=== PATIENT | female | born 1965 | race Caucasian/White ===

== ENCOUNTER 2016-09-08 10:41 | Emergency (ER) | payer SELFPAY ==
[~2016-09-08] VITALS: Ht 152.4 cm; Wt 48.0 kg
[~2016-09-08 10:41] MED LIST: ALBU6.7H INH; AMOX500T PO; IBUP600 PO; LORA-392 PO; SLEEPING PILL PO; TRAZ150T75 PO; ULTR50TA PO
[2016-09-08 10:46] VITALS: BP 133/81; PULSE 80; RESP 18; TEMP 98.3; O2SAT 95
[2016-09-08] MEDS ORDERED: LORA1TAB12 PO (11:18)
[2016-09-08] MEDS ORDERED: ESCI5TAB PO (11:18)
[2016-09-08] MEDS ORDERED: ESCI20TA PO (11:18)
[2016-09-08] MEDS ORDERED: TRAZ50TA12 PO (11:18)
[2016-09-08] MEDS ORDERED: AZIT250T3 PO (13:08)
[2016-09-08] MEDS ORDERED: TRIMSOL RIGHT EYE (13:08)
--- NOTE | 2016-09-08 13:09 | PD ---
HPI Chief Complaint: Cold / Flu Symptoms Time Seen by Provider: 12:30 Travel History International Travel<30 days: No Contact w/Intl Traveler<30days: No Traveled to known affect area: No History of Present Illness HPI 51-year-old female presents emergency department for evaluation of cough and a right pinkeye. Patient reports she's had a productive cough the last 12 days. She reports she woke up this morning with a right pinkeye and crusting at eyelashes. She denies fever, chills, sweats, chest pain or shortness of breath. She reports approximately 12 days ago she developed upper respiratory like symptoms which included sore throat nasal congestion and cough. She reports the cough has lingered and become productive with yellowish sputum. She denies injury to the right eye. She does not wear contact lenses. She denies pain in the eye. Or visual changes. She has a past medical history of asthma. She reports her symptoms are unrelieved with [id number] medicines. [facility] Past Medical History Narrative Medical Significant for asthma. Asthma: Yes Anxiety: Yes Diminished Hearing: No Immunizations Current: No ?: Not Menopausal: Yes Past Surgical History Hysterectomy: Yes Tonsillectomy: Yes Social History Alcohol Use: Yes (2/WEEK) Tobacco Use: Yes (1PPD) Substance Use: No Allergies-Medications (Allergen,Severity, Reaction): Coded Allergies: Codeine (Verified Allergy, Severe, RASH AND SOB, 09/08/16) Reported Meds & Prescriptions Reported Meds & Active Scripts Active Reported Trazodone (Trazodone HCl) 50 Mg Tab 150 Mg PO TID Escitalopram (Escitalopram Oxalate) 5 Mg Tab 2 Mg PO HS Lorazepam 1 Mg Tab 1 Mg PO BID PRN Escitalopram (Escitalopram Oxalate) 20 Mg Tab 20 Mg PO DAILY Review of Systems Except as stated in HPI: all other systems reviewed are Neg Physical Exam Narrative GENERAL: Alert, well-appearing female SKIN: Focused skin assessment warm/dry. HEAD: Atraumatic. Normocephalic. EYES: Pupils equal and round. No scleral icterus. Right eye injected. Crusting eyelashes. Corneas clear. No fluorescein dye uptake. EOMs intact. ENT: No nasal bleeding or discharge. Mucous membranes pink and moist. NECK: Trachea midline. No JVD. CARDIOVASCULAR: Regular rate and rhythm. No murmur appreciated. RESPIRATORY: No accessory muscle use. Clear to auscultation. Breath sounds equal bilaterally. GASTROINTESTINAL: Abdomen soft, non-tender, nondistended. Hepatic and splenic margins not palpable. MUSCULOSKELETAL: No obvious deformities. No clubbing. No cyanosis. No edema. NEUROLOGICAL: Awake and alert. No obvious cranial nerve deficits. Motor grossly within normal limits. Normal speech. PSYCHIATRIC: Appropriate mood and affect; insight and judgment normal. Data Data Last Documented VS Vital Signs Date Time Temp Pulse Resp B/P Pulse Ox O2 Delivery O2 Flow Rate FiO2 09/08/16 10:46 98.3 80 18 133/81 95 Room Air MDM Medical Decision Making Medical Screen Exam Complete: Yes Emergency Medical Condition: Yes Differential Diagnosis Bronchitis, viral conjunctivitis, bacterial conjunctivitis, pneumonia Narrative Course 51-year-old female presents emergency department for evaluation of productive cough and a right pinkeye. Patient reports approximately 12 days ago she developed upper respiratory like symptoms which included cough, sore throat, nasal congestion. She reports all symptoms resolved except the cough which is now productive. She denies shortness of breath, wheezing, chest pain. On exam her lung sounds are clear. Wood's lamp exam of the right eye shows no corneal abrasion or foreign body. Patient will be treated for bronchitis and conjunctivitis. Diagnosis Primary Impression: Bronchitis Additional Impression: Conjunctivitis Qualified Code: H10.31 - Acute conjunctivitis of right eye, unspecified acute conjunctivitis type Referrals: Primary Care Physician Patient Instructions: Acute Bronchitis (ED), Conjunctivitis (ED), General Instructions Additional Instructions: Take medications as prescribed. Follow-up with her primary doctor. Return to the emergency department if he developed new or worsening symptoms. Scripts Polymyxin B-Trimethoprim Opth Drops 10,000-0.1 Unit/Ml-% Soln1 Drop RIGHT EYE Q6HR #1 BOTTLE Ref 0 Prov:Carmen Villarreal 09/08/16 Azithromycin 250 Mg Sut699 Mg PO DIRECTED #6 TAB Ref 0 Take 2 tabs (500 mg) on day 1 then 1 tab daily x 4 days. Prov:Carmen Villarreal 09/08/16 Disposition: 01 DISCHARGE HOME Condition: Stable Carmen Villarreal Sep 08, 2016 13:09
[2016-09-21] MEDS ORDERED: TRIMSOL EACH EYE (14:01)
== END 2016-09-08 13:16 | disposition home or self-care (01) ==
LOC: PHEFT 10:41
DX: J40 Bronchitis, not specified as acute or chronic (principal); H10.31 Unspecified acute conjunctivitis, right eye; F17.200 Nicotine dependence, unspecified, uncomplicated
CPT/HCPCS: 99284

== ENCOUNTER 2016-09-13 14:20 | Emergency (ER) | payer SELFPAY ==
[~2016-09-13] VITALS: Ht 152.4 cm; Wt 48.0 kg
[~2016-09-13 14:20] MED LIST changes: -ALBU6.7H INH; -AMOX500T PO; +AZIT250T3 PO; +ESCI20TA PO; +ESCI5TAB PO; -IBUP600 PO; -LORA-392 PO; +LORA1TAB12 PO; -SLEEPING PILL PO; -TRAZ150T75 PO; +TRAZ50TA12 PO; +TRIMSOL RIGHT EYE; -ULTR50TA PO
[2016-09-13 14:27] VITALS: BP 134/86; PULSE 96; RESP 18; TEMP 97.6; O2SAT 95
--- NOTE | 2016-09-13 15:41 | PD ---
HPI Chief Complaint: Eye Problems/Injury Time Seen by Provider: 15:25 Travel History International Travel<30 days: No Contact w/Intl Traveler<30days: No Traveled to known affect area: No History of Present Illness HPI 51-year-old female presents to the emergency department for evaluation of bilateral eye redness, cough, nasal congestion, right ear pain. Patient was seen in the emergency department September 08, 2016 for the same complaint. At that time she was diagnosed with bronchitis and conjunctivitis. She was prescribed a Z-Donte and polymyxin eyedrops. Patient reports since that time her eyes fail to improve. She denies visual changes. She reports the cough has improved but she continues to have nasal congestion and ear pain. She denies fever or chills , shortness of breath or chest pain. PFSH Past Medical History Asthma: Yes Anxiety: Yes Diminished Hearing: No Immunizations Current: No ?: Not Menopausal: Yes Past Surgical History Hysterectomy: Yes Tonsillectomy: Yes Social History Alcohol Use: Yes (2/WEEK) Tobacco Use: Yes (1PPD) Substance Use: No Allergies-Medications (Allergen,Severity, Reaction): Coded Allergies: Codeine (Verified Allergy, Severe, RASH AND SOB, 09/13/16) Reported Meds & Prescriptions Reported Meds & Active Scripts Active Erythromycin Opth Oint 5 Mg/Gm Oint 1 Applic EACH EYE BID Polymyxin B-Trimethoprim Opth Drops 10,000-0.1 Unit/Ml-% Soln 1 Drop RIGHT EYE Q6HR Reported Trazodone (Trazodone HCl) 50 Mg Tab 150 Mg PO TID Escitalopram (Escitalopram Oxalate) 5 Mg Tab 2 Mg PO HS Lorazepam 1 Mg Tab 1 Mg PO BID PRN Escitalopram (Escitalopram Oxalate) 20 Mg Tab 20 Mg PO DAILY Review of Systems Except as stated in HPI: all other systems reviewed are Neg Physical Exam Narrative GENERAL: Alert, well-appearing female SKIN: Focused skin assessment warm/dry. HEAD: Atraumatic. Normocephalic. EYES: Pupils equal and round. No scleral icterus. Bilateral injection with clear drainage. ENT: No nasal bleeding or discharge. Mucous membranes pink and moist. NECK: Trachea midline. No JVD. CARDIOVASCULAR: Regular rate and rhythm. No murmur appreciated. RESPIRATORY: No accessory muscle use. Clear to auscultation. Breath sounds equal bilaterally. No wheezing or rhonchi. GASTROINTESTINAL: Abdomen soft, non-tender, nondistended. Hepatic and splenic margins not palpable. MUSCULOSKELETAL: No obvious deformities. No clubbing. No cyanosis. No edema. NEUROLOGICAL: Awake and alert. No obvious cranial nerve deficits. Motor grossly within normal limits. Normal speech. PSYCHIATRIC: Appropriate mood and affect; insight and judgment normal. Data Data Last Documented VS Vital Signs Date Time Temp Pulse Resp B/P Pulse Ox O2 Delivery O2 Flow Rate FiO2 09/13/16 14:27 97.6 96 18 134/86 95 MDM Medical Decision Making Medical Screen Exam Complete: Yes Emergency Medical Condition: Yes Differential Diagnosis Viral conjunctivitis, viral illness Narrative Course 51-year-old female presents emergency department for evaluation of bilateral red eyes, nasal congestion, right ear pain. Patient reports symptoms been present for over a week. She was evaluated in the emergency department on September 08, 2016 and diagnosed with bronchitis and conjunctivitis. She reports the cough improved but her eyes have failed to improve. On exam patient has continued conjunctivitis. Without evidence of iritis, corneal abrasion or ulcer. Patient was again educated that this is likely viral conjunctivitis and she needs to follow up with ophthalmology. She was instructed to stop the polymyxin and start erythromycin ointment. Diagnosis Primary Impression: Viral conjunctivitis Additional Impression: Viral illness Referrals: DR. YUMIKO MORGAN Scripts Erythromycin Opth Oint 5 Mg/Gm Oint1 Applic EACH EYE BID #1 TUBE Ref 0 Prov:Carmen Villarreal 09/13/16 Disposition: 01 DISCHARGE HOME Condition: Stable Carmen Villarreal Sep 13, 2016 15:41
[2016-09-13] MEDS ORDERED: ERYTOIN10 EACH EYE (16:08)
[2016-09-21] MEDS ORDERED: TRIMSOL EACH EYE (14:01)
== END 2016-09-13 16:18 | disposition home or self-care (01) ==
LOC: PHED 14:20 → PHEFT 16:18
DX: B30.9 Viral conjunctivitis, unspecified (principal); B34.9 Viral infection, unspecified; H92.01 Otalgia, right ear; R09.81 Nasal congestion; F17.210 Nicotine dependence, cigarettes, uncomplicated
CPT/HCPCS: 99283

== ENCOUNTER 2018-01-05 18:23 | Observation (INO) ==
[2018-01-05] MEDS ORDERED: Sod Chloride 0.9% Inj 1,000 ML IV.SIG ONE (19:30)
--- NOTE | 2018-01-05 19:41 | ED ---
HPI General Chief Complaint: Respiratory Symptoms Stated Complaint: sob Source: patient and family Mode of arrival: ambulatory Limitations: no limitations History of Present Illness HPI narrative: 52-year-old female presents to the emergency department by private transportation for evaluation of syncopal episode just prior to arrival to the emergency department. Patient states she has not felt well all day has been in the process of undergoing test at her physician's office to evaluate for lung disease with primary function test and ankle-brachial index today. Patient states that she also has been evaluated for blood pressure issues and has been prescribed Ativan but states she did not take Ativan today. Patient states that just prior to arrival to the emergency department she was sitting down having a beer and then felt very lightheaded use her inhaler because she thought perhaps she was short of breath felt like she needed some air walked outside and then her significant other found her on the ground in the parking lot. Patient states she did not fall to the ground that she felt very lightheaded so she sat down and then she felt like she is going to pass out so she laid down. According to the significant other he came outside and she was breathing but she did not seem to initially respond to his voice so he sugar and then she came to. No reported seizure activity witnessed. There is no tongue trauma and no bladder or bowel incontinence. Patient states she has numbness and tingling of her arms and her legs. Patient states that she has a history of reactive airways disease anxiety and vertigo. Patient denies having any preceding chest pain or palpitations or diaphoresis. No report of long distance travel protracted bedrest or surgical procedure. No report of lower extremity numbness tingling or weakness. No report of clotting disorder. Patient states she has been under enormous stress and was started on lorazepam for blood pressure as it was felt to be associated with anxiety and stress. Patient's had no fever or chills. Patient does complain of headache and neck pain upper back pain. No report of vomiting but has experienced nausea and reportedly yesterday had a black stool. Patient does take Naprosyn daily. Patient denies any abdominal pain. No dysuria frequency urgency or hematuria. Denies recent injury or fall. No prior history of near syncope or syncope. Patient reports she did feel chilled and tremulous prior to the event. MD complaint: Reports loss of consciousness Onset (ago): minute(s) (40 minutes prior to arrival) -: second(s) and minutes(s) Description of event: Denies tonic-clonic movements, post-event confusion, focal shaking, incontinence, stopped breathing, lost pulse and CPR performed Prodromal symptoms: Reports lightheaded and shortness of breath Witnessed: no (Reportedly it was outside by herself and then her significant other found her briefly after she had stated she was going to walk outside to get some fresh air within minutes.) Context: Reports alcohol use and other (recent stress) Injuries sustained associated with event: Reports none Current symptoms: Reports lightheaded, vertigo, headache, nausea and weakness History: Denies family history of sudden Treatments prior to arrival: Reports none Related Data Home Medications Medication Instructions Recorded Confirmed albuterol sulfate [ProAir HFA] 1 puff INHALATION Q4-6H PRN 01/05/18 01/05/18 albuterol sulfate [Ventolin HFA] 1 puff INHALATION Q4-6H PRN 01/05/18 01/05/18 escitalopram oxalate [Lexapro] 20 mg PO DAILY 01/05/18 01/05/18 gabapentin 300 mg PO TID 01/05/18 01/05/18 lorazepam 1 mg PO BID PRN 01/05/18 01/05/18 meclizine 25 mg PO DAILY PRN 01/05/18 01/05/18 temazepam 01/05/18 trazodone 150 mg PO QPM 01/05/18 01/05/18 Allergies Allergy/AdvReac Type Severity Reaction Status Date / Time codeine Allergy Severe RASH AND Verified 01/05/18 18:30 SOB Review of Systems Constitutional Reports chills and Denies fever(s) Eyes Denies blind spots, Denies blurry vision, Denies decreased night vision and Denies diplopia ENT Reports dizziness, Reports dry mouth, Reports headache(s) and Reports neck pain Cardiovascular Denies chest pain, Denies diaphoresis, Reports syncope, Reports lightheadedness and Reports dyspnea Respiratory Denies cough, Denies pain on inspiration, Reports dyspnea and Denies wheezing Gastrointestinal Denies abdominal pain, Reports nausea and Denies vomiting Comments: yesterday x 1 black stool Genitourinary Denies urinary frequency and Denies dysuria Musculoskeletal Denies back pain, Denies muscle weakness and Reports tingling Integumentary/Breasts Denies pruritus and Denies rash Neurologic Denies abnormal speech, Reports vertigo, Reports dizziness, Reports syncope, Reports headache(s), Denies loss of vision, Reports numbness (all over), Denies convulsions and Reports tingling (all over) Psychiatric Reports anxiety Endocrine Reports fatigue and Denies polydipsia Hematologic/Lymphatic Denies easy bruising Allergic/Immunologic Denies urticaria and Denies wheezing PMFSH Medical History Medical History Depression (Acute) Hx of hysterectomy (Acute) Hypertension (Acute) Insomnia (Acute) Vertigo (Acute) Anxiety (Acute) Surgical History Surgical History History of surgery on arm (Acute) Social History Social History Substance History: Unable to Obtain Second Hand Smoke Exposure: Yes Smoking Status: Current every day smoker Tobacco Type: Cigarettes How Often Do You Have a Drink Containing Alcohol: 2 to 4 times a month Recent Travel in [facility] within the Last 8 Weeks: No Recent Out of Country Travel within the Last 8 Weeks: No Immunization History Tetanus Immunization: >5 Years Hx Influenza Vaccine This Season: No Exam Narrative Exam Narrative: GENERAL: Well-developed well-nourished female appears mildly ill in no acute respiratory distress GCS 15 SKIN: Focused skin assessment warm/dry. HEAD: Atraumatic. Normocephalic. No scalp soft tissue swelling tenderness to palpation abrasion laceration or bony abnormality to palpation EYES: Pupils equal and round and reactive to light. No scleral icterus. No injection or drainage. Extraocular muscles intact. ENT: No nasal bleeding or discharge. Mucous membranes pink and moist. Airway is patent. NECK: Trachea midline. No JVD. No midline tenderness to direct palpation along the cervical spine no bony step-off CARDIOVASCULAR: Regular rate and rhythm. No murmur appreciated. RESPIRATORY: No accessory muscle use. Clear to auscultation. Breath sounds equal bilaterally. GASTROINTESTINAL: Abdomen soft, non-tender, nondistended. Hepatic and splenic margins not palpable. No guarding no rebound. MUSCULOSKELETAL: No obvious deformities. No clubbing. No cyanosis. No edema. Radial and dorsalis pedis pulses 2+ to palpation bilaterally NEUROLOGICAL: Awake and alert. No obvious cranial nerve deficits. Motor grossly within normal limits. No limb ataxia. No pronator drift. Normal speech. PSYCHIATRIC: Appropriate mood and affect; insight and judgment normal. Procedures Hemaprompt Stool Procedural Steps Taken: specimen placed in appropriate test area, developer placed on specimen and control areas and controls appropriately positive and negative Hemaprompt Stool Result: negative Course Initial Documented Vital Signs Temperature 97.6 F 01/05/18 18:31 Pulse Rate 87 01/05/18 18:31 Respiratory Rate 18 01/05/18 18:31 Blood Pressure 97/55 L 01/05/18 18:31 Pulse Oximetry 95 01/05/18 18:31 Last Documented Vital Signs Temperature 97.6 F 01/05/18 18:31 Pulse Rate 78 01/05/18 22:15 Respiratory Rate 18 01/05/18 22:31 Blood Pressure 98/58 L 01/05/18 22:15 Pulse Oximetry 96 01/05/18 21:19 Medical Decision Making MDM Narrative Medical decision making narrative: 52-year-old female presents to the emergency department by private transportation after a syncopal episode with no witnessed seizure activity and no post event confusion no incontinence or tongue trauma. Patient continues to complain of generalized weakness. Patient did drink a small amount of alcohol prior to onset of symptoms. Patient did present with triage hypotension of 97/55 with history of hypertension. Patient placed on threat monitoring analyst IV access obtained specimens collected and sent for resulting bedside glucose 107 Lab values resulted patient identified to have mild hypo-kalemia and positive cocaine on urine drug screen lactic acid was elevated at 2.4 EKG shows no acute injury pattern headache enzymes are found to be in normal range CT brain noncontrast reveals no acute process Patient given additional bolus of normal saline potassium replacement complained of shortness of breath updraft treatment administered x1 with Solu- Medrol Patient complains of headache given Toradol Patient's case discussed with [facility] for OBS admission Medical Screen Exam Complete: Yes Emergency Medical Condition: Yes Differential Diagnosis Differential Diagnosis: Generalized weakness, syncope, arrhythmia, anemia, ACS, MS, PE, CVA, substance ingestion, alcohol ingestion, electrolyte disturbance, dehydration Medical Records Medical records reviewed: Yes I reviewed the patient's medical records. Lab Data Result diagrams: 01/05/18 19:40 01/05/18 19:40 Lab Results 01/05/18 01/05/18 01/05/18 Range/Units 19:40 19:40 19:40 CBC w Diff WBC (4.0-11.0) th/mm3 RBC (4.00-5.30) mil/mm3 Hgb (11.6-15.3) gm/dL Hct (35.0-46.0) % MCV (80.0-100.0) fL MCH (27.0-34.0) pg MCHC (32.0-36.0) % RDW (11.6-17.2) % Plt Count (150-450) th/mm3 MPV (7.0-11.0) fL Neut % (Auto) (16.0-70.0) % Lymph % (Auto) (9.0-44.0) % [place] % (Auto) (0.0-8.0) % Eos % (Auto) (0.0-4.0) % Baso % (Auto) (0.0-2.0) % Neut # (Auto) (1.8-7.7) th/mm3 Lymph # (Auto) (1.0-4.8) th/mm3 [place] # (Auto) (0.0-0.9) th/mm3 Eos # (Auto) (0.0-0.4) th/mm3 Baso # (Auto) (0.0-0.2) th/mm3 WBC Differential Diff Scan Differential Comment Platelet Estimate (Normal) Platelet Morphology (Normal) PT 10.8 (9.8-11.6) sec INR 1.1 Ratio APTT 24.3 (24.3-30.1) sec D-Dimer Quant (PE/DVT) 0.31 (0.00-0.50) mg/L FEU Sodium 138 (136-145) meq/L Potassium 3.2 L (3.5-5.1) meq/L Chloride 105 (98-107) meq/L Carbon Dioxide 19.6 L (21.0-32.0) meq/L Anion Gap 13 (5-15) meq/L BUN 15 (7-18) mg/dL Creatinine 1.00 (0.50-1.00) mg/dL Estimated GFR 58 L (>89) mL/min Random Glucose 104 (74-106) mg/dL Lactic Acid (0.4-2.0) mmol/L Calcium 8.3 L (8.5-10.1) mg/dL Magnesium 2.0 (1.5-2.5) mg/dL Total Bilirubin 0.5 (0.2-1.0) mg/dL AST 18 (15-37) U/L ALT 20 (10-53) U/L Alkaline Phosphatase 60 (45-117) U/L Total Creatine Kinase (26-192) U/L Troponin I (0.02-0.05) ng/mL Total Protein 7.3 (6.4-8.2) g/dL Albumin 4.0 (3.4-5.0) g/dL TSH (0.358-3.740) uIU/mL Urine Color (Yellw/Straw) Urine Clarity (Clear) Urine pH (5.0-8.5) Ur Specific [place] (1.002-1.035) Urine Protein (Neg-Trace) mg/dL Urine Glucose (UA) (Negative) mg/dL Urine Ketones (Negative) mg/dL Urine Occult Blood (Negative) Urine Nitrate (Negative) Urine Bilirubin (Negative) Urine Urobilinogen (Less than 2) mg/dL Ur Leukocyte Esterase (Negative) Urine RBC (0-3) /hpf Urine WBC (0-5) /hpf Ur Squamous Epith Cells (0-5) /hpf Amorphous Sediment (None) /hpf Hyaline Casts (0-3) /lpf Micro UA Comment Ur Microscopic Review Urine Culture Comments Urine Opiates Screen (Neg) Ur Barbiturates Screen (Neg) Ur Amphetamines Screen (Neg) U Benzodiazepines Scrn (Neg) Urine Cocaine Screen (Neg) U Cannabinoids Screen (Neg) Serum Alcohol (0-5) mg/dL Blood Type A Negative Blood Type Recheck Required Antibody Screen Negative 01/05/18 01/05/18 01/05/18 Range/Units 19:40 19:40 19:40 CBC w Diff Slide review pending WBC 6.4 (4.0-11.0) th/mm3 RBC 5.22 (4.00-5.30) mil/mm3 Hgb 15.9 H (11.6-15.3) gm/dL Hct 46.3 H (35.0-46.0) % MCV 88.8 (80.0-100.0) fL MCH 30.4 (27.0-34.0) pg MCHC 34.2 (32.0-36.0) % RDW 13.2 (11.6-17.2) % Plt Count 177 (150-450) th/mm3 MPV 10.7 (7.0-11.0) fL Neut % (Auto) 48.8 (16.0-70.0) % Lymph % (Auto) 37.6 (9.0-44.0) % [place] % (Auto) 8.6 H (0.0-8.0) % Eos % (Auto) 3.1 (0.0-4.0) % Baso % (Auto) 1.9 (0.0-2.0) % Neut # (Auto) 3.2 (1.8-7.7) th/mm3 Lymph # (Auto) 2.4 (1.0-4.8) th/mm3 [place] # (Auto) 0.5 (0.0-0.9) th/mm3 Eos # (Auto) 0.2 (0.0-0.4) th/mm3 Baso # (Auto) 0.1 (0.0-0.2) th/mm3 WBC Differential . Diff Scan Auto diff confirmed Differential Comment . Platelet Estimate Normal (Normal) Platelet Morphology Enlarged H (Normal) PT (9.8-11.6) sec INR Ratio APTT (24.3-30.1) sec D-Dimer Quant (PE/DVT) (0.00-0.50) mg/L FEU Sodium (136-145) meq/L Potassium (3.5-5.1) meq/L Chloride (98-107) meq/L Carbon Dioxide (21.0-32.0) meq/L Anion Gap (5-15) meq/L BUN (7-18) mg/dL Creatinine (0.50-1.00) mg/dL Estimated GFR (>89) mL/min Random Glucose (74-106) mg/dL Lactic Acid (0.4-2.0) mmol/L Calcium (8.5-10.1) mg/dL Magnesium (1.5-2.5) mg/dL Total Bilirubin (0.2-1.0) mg/dL AST (15-37) U/L ALT (10-53) U/L Alkaline Phosphatase (45-117) U/L Total Creatine Kinase (26-192) U/L Troponin I Less than 0.02 L (0.02-0.05) ng/mL Total Protein (6.4-8.2) g/dL Albumin (3.4-5.0) g/dL TSH (0.358-3.740) uIU/mL Urine Color (Yellw/Straw) Urine Clarity (Clear) Urine pH (5.0-8.5) Ur Specific [place] (1.002-1.035) Urine Protein (Neg-Trace) mg/dL Urine Glucose (UA) (Negative) mg/dL Urine Ketones (Negative) mg/dL Urine Occult Blood (Negative) Urine Nitrate (Negative) Urine Bilirubin (Negative) Urine Urobilinogen (Less than 2) mg/dL Ur Leukocyte Esterase (Negative) Urine RBC (0-3) /hpf Urine WBC (0-5) /hpf Ur Squamous Epith Cells (0-5) /hpf Amorphous Sediment (None) /hpf Hyaline Casts (0-3) /lpf Micro UA Comment Ur Microscopic Review Urine Culture Comments Urine Opiates Screen (Neg) Ur Barbiturates Screen (Neg) Ur Amphetamines Screen (Neg) U Benzodiazepines Scrn (Neg) Urine Cocaine Screen (Neg) U Cannabinoids Screen (Neg) Serum Alcohol 17 H (0-5) mg/dL Blood Type Blood Type Recheck Antibody Screen 01/05/18 01/05/18 01/05/18 Range/Units 19:40 19:41 19:41 CBC w Diff WBC (4.0-11.0) th/mm3 RBC (4.00-5.30) mil/mm3 Hgb (11.6-15.3) gm/dL Hct (35.0-46.0) % MCV (80.0-100.0) fL MCH (27.0-34.0) pg MCHC (32.0-36.0) % RDW (11.6-17.2) % Plt Count (150-450) th/mm3 MPV (7.0-11.0) fL Neut % (Auto) (16.0-70.0) % Lymph % (Auto) (9.0-44.0) % [place] % (Auto) (0.0-8.0) % Eos % (Auto) (0.0-4.0) % Baso % (Auto) (0.0-2.0) % Neut # (Auto) (1.8-7.7) th/mm3 Lymph # (Auto) (1.0-4.8) th/mm3 [place] # (Auto) (0.0-0.9) th/mm3 Eos # (Auto) (0.0-0.4) th/mm3 Baso # (Auto) (0.0-0.2) th/mm3 WBC Differential Diff Scan Differential Comment Platelet Estimate (Normal) Platelet Morphology (Normal) PT (9.8-11.6) sec INR Ratio APTT (24.3-30.1) sec D-Dimer Quant (PE/DVT) (0.00-0.50) mg/L FEU Sodium (136-145) meq/L Potassium (3.5-5.1) meq/L Chloride (98-107) meq/L Carbon Dioxide (21.0-32.0) meq/L Anion Gap (5-15) meq/L BUN (7-18) mg/dL Creatinine (0.50-1.00) mg/dL Estimated GFR (>89) mL/min Random Glucose (74-106) mg/dL Lactic Acid 2.4 H (0.4-2.0) mmol/L Calcium (8.5-10.1) mg/dL Magnesium (1.5-2.5) mg/dL Total Bilirubin (0.2-1.0) mg/dL AST (15-37) U/L ALT (10-53) U/L Alkaline Phosphatase (45-117) U/L Total Creatine Kinase 64 (26-192) U/L Troponin I (0.02-0.05) ng/mL Total Protein (6.4-8.2) g/dL Albumin (3.4-5.0) g/dL TSH 0.995 (0.358-3.740) uIU/mL Urine Color (Yellw/Straw) Urine Clarity (Clear) Urine pH (5.0-8.5) Ur Specific [place] (1.002-1.035) Urine Protein (Neg-Trace) mg/dL Urine Glucose (UA) (Negative) mg/dL Urine Ketones (Negative) mg/dL Urine Occult Blood (Negative) Urine Nitrate (Negative) Urine Bilirubin (Negative) Urine Urobilinogen (Less than 2) mg/dL Ur Leukocyte Esterase (Negative) Urine RBC (0-3) /hpf Urine WBC (0-5) /hpf Ur Squamous Epith Cells (0-5) /hpf Amorphous Sediment (None) /hpf Hyaline Casts (0-3) /lpf Micro UA Comment Ur Microscopic Review Urine Culture Comments Urine Opiates Screen (Neg) Ur Barbiturates Screen (Neg) Ur Amphetamines Screen (Neg) U Benzodiazepines Scrn (Neg) Urine Cocaine Screen (Neg) U Cannabinoids Screen (Neg) Serum Alcohol (0-5) mg/dL Blood Type Blood Type Recheck Antibody Screen 01/05/18 01/05/18 01/05/18 Range/Units 20:25 20:25 21:44 CBC w Diff WBC (4.0-11.0) th/mm3 RBC (4.00-5.30) mil/mm3 Hgb (11.6-15.3) gm/dL Hct (35.0-46.0) % MCV (80.0-100.0) fL MCH (27.0-34.0) pg MCHC (32.0-36.0) % RDW (11.6-17.2) % Plt Count (150-450) th/mm3 MPV (7.0-11.0) fL Neut % (Auto) (16.0-70.0) % Lymph % (Auto) (9.0-44.0) % [place] % (Auto) (0.0-8.0) % Eos % (Auto) (0.0-4.0) % Baso % (Auto) (0.0-2.0) % Neut # (Auto) (1.8-7.7) th/mm3 Lymph # (Auto) (1.0-4.8) th/mm3 [place] # (Auto) (0.0-0.9) th/mm3 Eos # (Auto) (0.0-0.4) th/mm3 Baso # (Auto) (0.0-0.2) th/mm3 WBC Differential Diff Scan Differential Comment Platelet Estimate (Normal) Platelet Morphology (Normal) PT (9.8-11.6) sec INR Ratio APTT (24.3-30.1) sec D-Dimer Quant (PE/DVT) (0.00-0.50) mg/L FEU Sodium (136-145) meq/L Potassium (3.5-5.1) meq/L Chloride (98-107) meq/L Carbon Dioxide (21.0-32.0) meq/L Anion Gap (5-15) meq/L BUN (7-18) mg/dL Creatinine (0.50-1.00) mg/dL Estimated GFR (>89) mL/min Random Glucose (74-106) mg/dL Lactic Acid 0.9 (0.4-2.0) mmol/L Calcium (8.5-10.1) mg/dL Magnesium (1.5-2.5) mg/dL Total Bilirubin (0.2-1.0) mg/dL AST (15-37) U/L ALT (10-53) U/L Alkaline Phosphatase (45-117) U/L Total Creatine Kinase (26-192) U/L Troponin I (0.02-0.05) ng/mL Total Protein (6.4-8.2) g/dL Albumin (3.4-5.0) g/dL TSH (0.358-3.740) uIU/mL Urine Color Yellow (Yellw/Straw) Urine Clarity Clear (Clear) Urine pH 5.5 (5.0-8.5) Ur Specific [place] Greater/equal 1.030 (1.002-1.035) Urine Protein Negative (Neg-Trace) mg/dL Urine Glucose (UA) Negative (Negative) mg/dL Urine Ketones Trace H (Negative) mg/dL Urine Occult Blood Negative (Negative) Urine Nitrate Negative (Negative) Urine Bilirubin Negative (Negative) Urine Urobilinogen 0.2 (Less than 2) mg/dL Ur Leukocyte Esterase Negative (Negative) Urine RBC 0-3 (0-3) /hpf Urine WBC 0-5 (0-5) /hpf Ur Squamous Epith Cells 6-10 H (0-5) /hpf Amorphous Sediment Few H (None) /hpf Hyaline Casts 0-3 (0-3) /lpf Micro UA Comment Culture not ind Ur Microscopic Review Microscopic reviewed Urine Culture Comments Culture not ind Urine Opiates Screen Neg (Neg) Ur Barbiturates Screen Neg (Neg) Ur Amphetamines Screen Neg (Neg) U Benzodiazepines Scrn Neg (Neg) Urine Cocaine Screen Pos H (Neg) U Cannabinoids Screen Neg (Neg) Serum Alcohol (0-5) mg/dL Blood Type Blood Type Recheck Antibody Screen Imaging Data Radiologist's impression: Head CT 01/05/18 19:30 CONCLUSION: Negative noncontrast head CT. . Chest X-Ray 01/05/18 19:33 CONCLUSION: No evidence of acute cardiopulmonary disease. ECG Data EKG Prior to Arrival: No Prior ECG tracings: not available for review Interpretation: EKG: Normal sinus rhythm rate [address] elevation or injury pattern or ectopy noted Discharge Plan Discharge Disposition Patient Disposition: 30 Still Patient Discharge Condition Condition: Stable Discharge Details Diagnosis: Syncope, Cocaine abuse Physicians Team ED Provider: Angelic Pardo Primary Care Provider: Primary Care Violet Underwood Attending Provider: Saige Humphrey Status ED Status: Left Department Discharge Information Discharge Date/Time: 01/06/18 00:49
--- NOTE | 2018-01-05 19:58 | XR ---
EXAM DATE: 01/05/2018 7:33 PM EDT AGE/SEX: 52 years / Female INDICATIONS: Shortness of breath, weakness, and dizziness. CLINICAL DATA: This is the patient's initial encounter. Patient reports that signs and symptoms have been present for 1 day and indicates a pain score of 0/10. MEDICAL/SURGICAL HISTORY: None. None. COMPARISON: [facility], CHEST PA & LAT, 01/26/2012. . FINDINGS: A single AP view of the chest demonstrates the lungs to be symmetrically aerated without evidence of mass, infiltrate or effusion. The cardiomediastinal contours are unremarkable. Osseous structures a re intact. CONCLUSION: No evidence of acute cardiopulmonary disease. Electronically signed by: Vicente Serrano MD 01/05/2018 7:57 PM EDT
[2018-01-05 20:05] LABS: Chloride 105 meq/L (98-107); Potassium 3.2 meq/L (3.5-5.1); Sodium 138 meq/L (136-145)
[2018-01-05 20:08] LABS: Anion Gap 13 meq/L (5-15); Baso # (Auto) 0.1 th/mm3 (0.0-0.2); Baso % (Auto) 1.9 % (0.0-2.0); Calcium 8.3 mg/dL (8.5-10.1); Carbon Dioxide 19.6 meq/L (21.0-32.0); Eos # (Auto) 0.2 th/mm3 (0.0-0.4); Eos % (Auto) 3.1 % (0.0-4.0); Glucose,Random 104 mg/dL (74-106); Hematocrit 46.3 % (35.0-46.0); Hemoglobin 15.9 gm/dL (11.6-15.3); Lymph # (Auto) 2.4 th/mm3 (1.0-4.8); Lymph % (Auto) 37.6 % (9.0-44.0); Mean Corpuscular HGB Conc 34.2 % (32.0-36.0); Mean Corpuscular Hemoglobin 30.4 pg (27.0-34.0); Mean Corpuscular Volume 88.8 fL (80.0-100.0); Mono # (Auto) 0.5 th/mm3 (0.0-0.9); Mono % (Auto) 8.6 % (0.0-8.0); Neut # (Auto) 3.2 th/mm3 (1.8-7.7); Neut % (Auto) 48.8 % (16.0-70.0); Red Blood Count 5.22 mil/mm3 (4.00-5.30); Red Cell Distribution Width 13.2 % (11.6-17.2); White Blood Count 6.4 th/mm3 (4.0-11.0)
[2018-01-05 20:09] LABS: Blood Urea Nitrogen 15 mg/dL (7-18)
[2018-01-05 20:10] LABS: Mean Platelet Volume 10.7 fL (7.0-11.0); Platelet Count 177 th/mm3 (150-450)
[2018-01-05 20:11] LABS: Alanine Aminotransferase 20 U/L (10-53); Aspartate Aminotransferase 18 U/L (15-37)
[2018-01-05 20:12] LABS: Glomerular Filtration Rate 58 mL/min (>89)
[2018-01-05 20:13] LABS: Activated Partial Thrombo Time 24.3 sec (24.3-30.1); INR 1.1 Ratio; Prothrombin Time 10.8 sec (9.8-11.6); Total Protein 7.3 g/dL (6.4-8.2)
[2018-01-05 20:14] LABS: Alkaline Phosphatase 60 U/L (45-117)
[2018-01-05 20:32] LABS: Bilirubin,Urine Negative (Negative); Clarity,Urine Clear (Clear); Color,Urine Yellow (Yellw/Straw); Glucose,Urine (UA) Negative (Negative); Leukocyte Esterase,Urine Negative (Negative); Nitrite,Urine Negative (Negative); PH,Urine 5.5 (5.0-8.5); Specific Gravity,Urine Greater/Equal 1.030 (1.002-1.035); Urobilinogen,Urine 0.2 mg/dL (Less than 2)
[2018-01-05 20:33] LABS: D-Dimer 0.31 mg/L FEU (0.00-0.50)
--- NOTE | 2018-01-05 20:40 | CT ---
EXAM DATE: 01/05/2018 7:56 PM EDT AGE/SEX: 52 years / Female INDICATIONS: Shortness of breath. Syncope. CLINICAL DATA: This is the patient's initial encounter. Patient reports that signs and symptoms have been present for 1 day and indicates a pain score of 7/10. MEDICAL/SURGICAL HISTORY: . Anxiety. Depression. Hypertension. Insomnia. Vertigo. Hysterectomy. RADIATION DOSE: 45.83 CTDI (mGy) COMPARISON: No prior exams available for comparison. TECHNIQUE: CT of the head without contrast. Using automated exposure control and adjustment of the mA and/or kV according to patient size, radiation dose was kept as low as reasonably achievable to ob tain optimal diagnostic quality images. DICOM format image data is available electronically for revi ew and comparison. FINDINGS: Cerebrum: The ventricles are normal for age. No evidence of midline shift, mass lesion, hemorrhage or acute infarction. No extraaxial fluid collections are seen. Posterior Fossa: The cerebellum and brainstem are intact. The 4th ventricle is midline. The cerebe llopontine angle is unremarkable. Extracranial: The visualized portion of the orbits is intact. Skull: The calvaria is intact. No evidence of skull fracture. CONCLUSION: Negative noncontrast head CT. . Electronically signed by: Vicente Serrano MD 01/05/2018 8:39 PM EDT
[2018-01-05 20:41] LABS: Amphetamine Screen,Urine Neg (Neg); Barbiturate Screen,Urine Neg (Neg); Cannabinoid Screen,Urine Neg (Neg); Cocaine Screen,Urine Pos (Neg)
[2018-01-05 20:43] LABS: Opiate Screen,Urine Neg (Neg)
[2018-01-05] MEDS ORDERED: MethylPREDNISolone Sod Succinate Inj 125 MG/2 ML Vial IV.PUSH ONE (20:47)
[2018-01-05 20:50] LABS: Hyaline Casts,Urine 0-3 /lpf (0-3)
[2018-01-05 20:51] LABS: Amorphous Sediment,Urine Few /hpf; RBC,Urine 0-3 /hpf (0-3); WBC,Urine 0-5 /hpf (0-5)
[2018-01-05 20:52] LABS: Platelet Estimate Normal (Normal)
[2018-01-05] MEDS ORDERED: Ketorolac Inj 30 MG/ML (IVP) Vial IV.PUSH ONE (20:53)
[2018-01-05] MEDS ORDERED: Sod Chloride 0.9% Inj 1,000 ML IV.SIG SCH (21:00)
[2018-01-05] MEDS ORDERED: Acetaminophen 500 MG Tablet PO ONE (22:17)
[2018-01-06] MEDS ORDERED: Acetaminophen 325 MG Tablet PO PRN (04:00)
[2018-01-06 07:33] LABS: Baso # (Auto) 0.2 th/mm3 (0.0-0.2); Baso % (Auto) 2.6 % (0.0-2.0); Eos % (Auto) 0.1 % (0.0-4.0); Hemoglobin 14.4 gm/dL (11.6-15.3); Lymph # (Auto) 0.6 th/mm3 (1.0-4.8); Lymph % (Auto) 9.3 % (9.0-44.0); Mean Corpuscular HGB Conc 34.3 % (32.0-36.0); Mean Corpuscular Hemoglobin 30.3 pg (27.0-34.0); Mean Corpuscular Volume 88.5 fL (80.0-100.0); Mean Platelet Volume 10.6 fL (7.0-11.0); Mono # (Auto) 0.1 th/mm3 (0.0-0.9); Neut # (Auto) 5.5 th/mm3 (1.8-7.7); Platelet Count 164 th/mm3 (150-450); Red Blood Count 4.74 mil/mm3 (4.00-5.30); Red Cell Distribution Width 13.8 % (11.6-17.2); White Blood Count 6.4 th/mm3 (4.0-11.0)
--- NOTE | 2018-01-06 08:50 | US ---
EXAM DATE: 01/06/2018 12:00 AM EDT AGE/SEX: 52 years / Female INDICATIONS: Syncope. CLINICAL DATA: This is the patient's initial encounter. Patient reports that signs and symptoms have been present for 1 day and indicates a pain score of 0/10. MEDICAL/SURGICAL HISTORY: Hypertension. Anxiety. Depression. Vertigo. Hysterectomy. Arm surger y. COMPARISON: No prior exams available for comparison. VELOCITY PARAMETERS: ICA/CCA Ratio: Right 1.1 , Left 1.5 ICA: Right 91.2 cm/sec, Left 99.5 cm/sec CCA: Right 84.7 cm/sec, Left 68.5 cm/sec ECA: Right 78.1 cm/sec, Left 74.9 cm/sec Vertebral: Right 54.8 cm/sec antegrade, Left 60.3 cm/sec antegrade FINDINGS: Right Carotid: No significant plaque is visualized.The waveforms are within normal limits. Left Carotid: No significant plaque is visualized. The waveforms are within normal limits. Other: None. CONCLUSION: Negative for hemodynamically significant stenosis. Electronically signed by: Yadiel Syed MD 01/06/2018 8:48 AM EDT
--- NOTE | 2018-01-06 09:38 | P.HP ---
History of Present Illness Primary Care Physician: No Primary Care Physician Chief Complaint: Near syncopal episode History of Present Illness: This is a 52-year-old female patient with a known medical history of asthma, anxiety, tobacco abuse who presented to the ED status post near syncopal episode. Patient states that she was out with her friends, had drank 1 drink of alcohol and shortly after she became lightheaded and dizzy. States she went outside to get some fresh air and sat on the side of the building. She states that the feeling continued as well as complaints of blurry vision, and is unaware if she actually passed out. She denies falling or hitting her head. Her was with her and brought her to the emergency room. Patient states she did only drink 1 glass of alcohol that evening. It should be noted that her tox screen was positive for cocaine. When questioned about this patient states she does this probably less than 2 times a year, states that she did not do any the night of her said symptoms. Patient denies any recent illness including fevers, chills, cough, shortness of breath, dumping, nausea, vomiting , diarrhea or dysuria. Upon assessment this morning patient has no neurological deficits. Does complain of a headache although she did not sleep last evening as well as she thinks this may be due to nicotine withdrawal. CT of the head upon presentation was negative, echocardiogram done and unremarkable , carotid ultrasound negative, orthostatics negative lactic acid negative and symptoms have all resolved since presentation to the ED. It should be noted that patient did see her primary care physician yesterday, underwent pulmonary function tests and ankle brachial index tests. During the day she was reportedly at her normal state of health. She does admit to increasing life stressors, has been prescribed Ativan for recent anxiety. Review of Systems All other systems reviewed negative except as stated in HPI PMFSH - History History Provided By: Patient, Significant Other - Medical History Medical History: Medical History (Last Reviewed 01/06/18 @ 13:36 by Denisse Chavira) Depression Hx of hysterectomy Hypertension Insomnia Vertigo Anxiety - Surgical History Surgical History: Surgical History (Last Reviewed 01/06/18 @ 13:36 by Denisse Chavira) History of surgery on arm - Family History Family History: Family History (Last Updated 01/06/18 @ 13:36 by Denisse Chavira) Other Cardiovascular disease - Tobacco History Second Hand Smoke Exposure: Yes Tobacco Use In Past 30 Days: Yes Smoking Status: Current every day smoker Tobacco Type: Cigarettes - Alcohol History How Often Do You Have a Drink Containing Alcohol: 2 to 4 times a month - Substance Use History Substance History: No History of Abuse - Travel History Recent Travel in the [place] Within the Last 8 Weeks: No Recent Travel Out of the Country Within the Last 8 Weeks: No - Immunization History Tetanus Immunization: >5 Years Hx Influenza Vaccine This Season: No Medications and Allergies Active Medications: Active Medications Acetaminophen (Tylenol) 650 mg PO Q4H PRN PRN Reason: COOK/Fever Sodium Chloride (Ns Inj) 1,000 mls @ 0 mls/hr IV.SIG BOLUS SUMANTH Last Infusion: 01/05/18 22:23 Dose: Infused Ondansetron HCl (Zofran Inj) 4 mg IV.PUSH Q6H PRN PRN Reason: NAUSEA OR VOMITING Last Admin: 01/06/18 04:37 Dose: 4 mg Allergies Allergy/AdvReac Type Severity Reaction Status Date / Time codeine Allergy Severe RASH AND Verified 01/05/18 18:30 SOB Home Medications Medication Instructions Recorded Confirmed Type albuterol sulfate [ProAir HFA] 1 puff INHALATION Q4-6H PRN 01/05/18 01/05/18 History albuterol sulfate [Ventolin HFA] 1 puff INHALATION Q4-6H PRN 01/05/18 01/05/18 History escitalopram oxalate [Lexapro] 20 mg PO DAILY 01/05/18 01/05/18 History gabapentin 300 mg PO TID 01/05/18 01/05/18 History meclizine 25 mg PO DAILY PRN 01/05/18 01/05/18 History trazodone 150 mg PO QPM 01/05/18 01/05/18 History Exam Vital signs: Vital Signs 01/05/18 18:31 01/05/18 19:00 01/05/18 21:19 Temperature 97.6 F Pulse Rate 87 72 83 Respiratory Rate 18 18 Blood Pressure 97/55 L Pulse Oximetry 95 96 96 01/05/18 22:15 01/05/18 22:31 01/06/18 00:00 Temperature 96.4 F L Pulse Rate 78 78 Respiratory Rate 16 18 20 Blood Pressure 98/58 L 120/57 L Pulse Oximetry 78 L 01/06/18 01:08 01/06/18 04:00 01/06/18 06:07 Temperature 96.9 F L Pulse Rate 76 70 Respiratory Rate 20 Blood Pressure 121/61 Pulse Oximetry 95 95 01/06/18 08:00 Temperature 98.1 F Pulse Rate 67 Respiratory Rate 16 Blood Pressure 138/81 Pulse Oximetry 95 Intake & Output 01/05/18 01/06/18 01/06/18 18:59 06:59 18:59 Intake Total 2240 / 2240 Balance 2240 / 2240 Weight 47.3 kg 50 kg Intake: IV 1999 NS Inj 1,000 ML @ Wide Open IV. 1999 SIG BOLUS SUMANTH Rx#:[id number] Oral 240 / 240 Other: # Voids 2 Date of Last Bowel Movement 01/05/18 Weight On Admission 50 kg Narrative: GENERAL: Well-developed, well-nourished patient in [facility]. SKIN: Warm and dry. No rash. HEAD: Normocephalic. Atraumatic. EYES: Pupils equal and round. No scleral icterus. No injection or drainage. ENT: No nasal bleeding or discharge. Mucous membranes pink and moist. NECK: Supple. Trachea midline. CARDIOVASCULAR: Regular rate and rhythm. S1, S2 noted. No murmur appreciated. RESPIRATORY: No accessory muscle use. Clear to auscultation. Breath sounds equal bilaterally. GASTROINTESTINAL: Abdomen soft, non-tender, nondistended. Normoactive bowel sounds x4. MUSCULOSKELETAL: No obvious deformities. Extremities without clubbing, cyanosis , or edema. NEUROLOGICAL: Awake and alert. No obvious cranial nerve deficits. Motor grossly within normal limits. 5/5 muscle strength in bilateral upper and lower extremities. Normal speech. PSYCHIATRIC: Appropriate mood and affect; insight and judgment normal. Results - Labs CBC & Chem 7: 01/06/18 07:20 01/05/18 19:40 Labs: Laboratory Results - last 24 hr 01/05/18 01/05/18 01/05/18 19:40 19:40 19:40 CBC w Diff WBC RBC Hgb Hct MCV MCH MCHC RDW Plt Count MPV Neut % (Auto) Lymph % (Auto) [place] % (Auto) Eos % (Auto) Baso % (Auto) Neut # (Auto) Lymph # (Auto) [place] # (Auto) Eos # (Auto) Baso # (Auto) WBC Differential Diff Scan Differential Comment Platelet Estimate Platelet Morphology PT 10.8 INR 1.1 APTT 24.3 D-Dimer Quant (PE/DVT) 0.31 Sodium 138 Potassium 3.2 L Chloride 105 Carbon Dioxide 19.6 L Anion Gap 13 BUN 15 Creatinine 1.00 Estimated GFR 58 L Random Glucose 104 Lactic Acid Calcium 8.3 L Magnesium 2.0 Total Bilirubin 0.5 AST 18 ALT 20 Alkaline Phosphatase 60 Total Creatine Kinase Troponin I Total Protein 7.3 Albumin 4.0 TSH Urine Color Urine Clarity Urine pH Ur Specific [place] Urine Protein Urine Glucose (UA) Urine Ketones Urine Occult Blood Urine Nitrate Urine Bilirubin Urine Urobilinogen Ur Leukocyte Esterase Urine RBC Urine WBC Ur Squamous Epith Cells Amorphous Sediment Hyaline Casts Micro UA Comment Ur Microscopic Review Urine Culture Comments Urine Opiates Screen Ur Barbiturates Screen Ur Amphetamines Screen U Benzodiazepines Scrn Urine Cocaine Screen U Cannabinoids Screen Serum Alcohol Blood Type A Negative Blood Type Recheck Required Antibody Screen Negative 01/05/18 01/05/18 01/05/18 19:40 19:40 19:40 CBC w Diff Slide review pending WBC 6.4 RBC 5.22 Hgb 15.9 H Hct 46.3 H MCV 88.8 MCH 30.4 MCHC 34.2 RDW 13.2 Plt Count 177 MPV 10.7 Neut % (Auto) 48.8 Lymph % (Auto) 37.6 [place] % (Auto) 8.6 H Eos % (Auto) 3.1 Baso % (Auto) 1.9 Neut # (Auto) 3.2 Lymph # (Auto) 2.4 [place] # (Auto) 0.5 Eos # (Auto) 0.2 Baso # (Auto) 0.1 WBC Differential . Diff Scan Auto diff confirmed Differential Comment . Platelet Estimate Normal Platelet Morphology Enlarged H PT INR APTT D-Dimer Quant (PE/DVT) Sodium Potassium Chloride Carbon Dioxide Anion Gap BUN Creatinine Estimated GFR Random Glucose Lactic Acid Calcium Magnesium Total Bilirubin AST ALT Alkaline Phosphatase Total Creatine Kinase Troponin I Less than 0.02 L Total Protein Albumin TSH Urine Color Urine Clarity Urine pH Ur Specific [place] Urine Protein Urine Glucose (UA) Urine Ketones Urine Occult Blood Urine Nitrate Urine Bilirubin Urine Urobilinogen Ur Leukocyte Esterase Urine RBC Urine WBC Ur Squamous Epith Cells Amorphous Sediment Hyaline Casts Micro UA Comment Ur Microscopic Review Urine Culture Comments Urine Opiates Screen Ur Barbiturates Screen Ur Amphetamines Screen U Benzodiazepines Scrn Urine Cocaine Screen U Cannabinoids Screen Serum Alcohol 17 H Blood Type Blood Type Recheck Antibody Screen 01/05/18 01/05/18 01/05/18 19:40 19:41 19:41 CBC w Diff WBC RBC Hgb Hct MCV MCH MCHC RDW Plt Count MPV Neut % (Auto) Lymph % (Auto) [place] % (Auto) Eos % (Auto) Baso % (Auto) Neut # (Auto) Lymph # (Auto) [place] # (Auto) Eos # (Auto) Baso # (Auto) WBC Differential Diff Scan Differential Comment Platelet Estimate Platelet Morphology PT INR APTT D-Dimer Quant (PE/DVT) Sodium Potassium Chloride Carbon Dioxide Anion Gap BUN Creatinine Estimated GFR Random Glucose Lactic Acid 2.4 H Calcium Magnesium Total Bilirubin AST ALT Alkaline Phosphatase Total Creatine Kinase 64 Troponin I Total Protein Albumin TSH 0.995 Urine Color Urine Clarity Urine pH Ur Specific [place] Urine Protein Urine Glucose (UA) Urine Ketones Urine Occult Blood Urine Nitrate Urine Bilirubin Urine Urobilinogen Ur Leukocyte Esterase Urine RBC Urine WBC Ur Squamous Epith Cells Amorphous Sediment Hyaline Casts Micro UA Comment Ur Microscopic Review Urine Culture Comments Urine Opiates Screen Ur Barbiturates Screen Ur Amphetamines Screen U Benzodiazepines Scrn Urine Cocaine Screen U Cannabinoids Screen Serum Alcohol Blood Type Blood Type Recheck Antibody Screen 01/05/18 01/05/18 01/05/18 20:25 20:25 21:44 CBC w Diff WBC RBC Hgb Hct MCV MCH MCHC RDW Plt Count MPV Neut % (Auto) Lymph % (Auto) [place] % (Auto) Eos % (Auto) Baso % (Auto) Neut # (Auto) Lymph # (Auto) [place] # (Auto) Eos # (Auto) Baso # (Auto) WBC Differential Diff Scan Differential Comment Platelet Estimate Platelet Morphology PT INR APTT D-Dimer Quant (PE/DVT) Sodium Potassium Chloride Carbon Dioxide Anion Gap BUN Creatinine Estimated GFR Random Glucose Lactic Acid 0.9 Calcium Magnesium Total Bilirubin AST ALT Alkaline Phosphatase Total Creatine Kinase Troponin I Total Protein Albumin TSH Urine Color Yellow Urine Clarity Clear Urine pH 5.5 Ur Specific [place] Greater/equal 1.030 Urine Protein Negative Urine Glucose (UA) Negative Urine Ketones Trace H Urine Occult Blood Negative Urine Nitrate Negative Urine Bilirubin Negative Urine Urobilinogen 0.2 Ur Leukocyte Esterase Negative Urine RBC 0-3 Urine WBC 0-5 Ur Squamous Epith Cells 6-10 H Amorphous Sediment Few H Hyaline Casts 0-3 Micro UA Comment Culture not ind Ur Microscopic Review Microscopic reviewed Urine Culture Comments Culture not ind Urine Opiates Screen Neg Ur Barbiturates Screen Neg Ur Amphetamines Screen Neg U Benzodiazepines Scrn Neg Urine Cocaine Screen Pos H U Cannabinoids Screen Neg Serum Alcohol Blood Type Blood Type Recheck Antibody Screen 01/06/18 07:20 CBC w Diff Auto diff final WBC 6.4 RBC 4.74 Hgb 14.4 Hct 42.0 MCV 88.5 MCH 30.3 MCHC 34.3 RDW 13.8 Plt Count 164 MPV 10.6 Neut % (Auto) 87.0 H Lymph % (Auto) 9.3 [place] % (Auto) 1.0 Eos % (Auto) 0.1 Baso % (Auto) 2.6 H Neut # (Auto) 5.5 Lymph # (Auto) 0.6 L [place] # (Auto) 0.1 Eos # (Auto) 0.0 Baso # (Auto) 0.2 WBC Differential . Diff Scan Differential Comment . Platelet Estimate Platelet Morphology PT INR APTT D-Dimer Quant (PE/DVT) Sodium Potassium Chloride Carbon Dioxide Anion Gap BUN Creatinine Estimated GFR Random Glucose Lactic Acid Calcium Magnesium Total Bilirubin AST ALT Alkaline Phosphatase Total Creatine Kinase Troponin I Total Protein Albumin TSH Urine Color Urine Clarity Urine pH Ur Specific [place] Urine Protein Urine Glucose (UA) Urine Ketones Urine Occult Blood Urine Nitrate Urine Bilirubin Urine Urobilinogen Ur Leukocyte Esterase Urine RBC Urine WBC Ur Squamous Epith Cells Amorphous Sediment Hyaline Casts Micro UA Comment Ur Microscopic Review Urine Culture Comments Urine Opiates Screen Ur Barbiturates Screen Ur Amphetamines Screen U Benzodiazepines Scrn Urine Cocaine Screen U Cannabinoids Screen Serum Alcohol Blood Type Blood Type Recheck Antibody Screen - Imaging Impressions Head CT 01/05/18 19:30 CONCLUSION: Negative noncontrast head CT. . Chest X-Ray 01/05/18 19:33 CONCLUSION: No evidence of acute cardiopulmonary disease. Carotid Doppler Study 01/06/18 00:00 CONCLUSION: Negative for hemodynamically significant stenosis. Caprini VTE Risk Assessment Caprini VTE Risk Assessment: No/Low Risk (score <= 1) Caprini Risk Assessment Model: Point Value = 1 Point Value = 2 Point Value = 3 Point Value = 5 Age 41-60 Minor surgery BMI > 25 kg/m2 Swollen legs Varicose veins or History of unexplained or recurrent spontaneous Oral contraceptives or hormone replacement Sepsis (< 1 month) Serious lung disease, including pneumonia (< 1 month) Abnormal pulmonary function Acute myocardial infarction Congestive heart failure (< 1 month) History of inflammatory bowel disease Medical patient at bed rest Age 61-74 Arthroscopic surgery Major open surgery (> 45 min) Laparoscopic surgery (> 45 min) Malignancy Confined to bed (> 72 hours) Immobilizing plaster cast Central venous access Age >= 75 History of VTE Family history of VTE Factor V Leiden Prothrombin [id number] Lupus anticoagulant Anticardiolipin antibodies Elevated serum homocysteine Heparin-induced thrombocytopenia Other congenital or acquired thrombophilia Stroke (< 1 month) Elective arthroplasty Hip, pelvis, or leg fracture Acute spinal cord injury (< 1 month) Prophylaxis Regimen: Total Risk Factor Score Risk Level Prophylaxis Regimen 0-1 Low Early ambulation 2 Moderate Order ONE of the following: *Sequential Compression Device (SCD) *Heparin 5000 units SQ BID 3-4 Higher Order ONE of the following medications: *Heparin 5000 units SQ TID *Enoxaparin/Lovenox 40 mg SQ daily (WT < 150 kg, CrCl > 30 mL/min) *Enoxaparin/Lovenox 30 mg SQ daily (WT < 150 kg, CrCl > 10-29 mL/min) *Enoxaparin/Lovenox 30 mg SQ BID (WT < 150 kg, CrCl > 30 mL/min) AND/OR *Sequential Compression Device (SCD) 5 or more Highest Order ONE of the following medications: *Heparin 5000 units SQ TID (Preferred with Epidurals) *Enoxaparin/Lovenox 40 mg SQ daily (WT < 150 kg, CrCl > 30 mL/min) *Enoxaparin/Lovenox 30 mg SQ daily (WT < 150 kg, CrCl > 10-29 mL/min) *Enoxaparin/Lovenox 30 mg SQ BID (WT < 150 kg, CrCl > 30 mL/min) AND *Sequential Compression Device (SCD) Assessment and Plan - Plan This is a 52-year-old female patient with Near syncopal episode -Patient states that she felt dizzy and blurry vision last evening after drinking 1 alcoholic drink. The symptoms have improved. -Orthostatic blood pressures are negative. -Head CT on presentation reviewed and negative. -Carotid ultrasound negative. D-dimer negative. Lactic acid negative. -Blood pressure has been stable during hospitalization. -Patient placed on cardiac telemetry, monitored overnight. No arrhythmias noted. -Toxicology screen was also positive for cocaine. Patient states she only does this twice a year. This is questionable. I advised the patient and educated her on importance of avoiding this all together and the negative effects it may have on her heart. -She expresses desire to avoid it all together and understands importance. -Does complain of headache, she does state she gets migraines intermittently. Provided rx for Topamax. Encouraged patient to follow up with PCP for management. Anxiety -Patient has been recently prescribed lorazepam. E-force database reviewed. She was given 14 days worth of lorazepam which have . Will give 1 dose now. -Encouraged patient to follow up with PCP for rx for benzos. She states she has a few more left over at home. -May be contributing to her presenting symptoms. Tobacco abuse -Encouraged cessation. Cocaine use -Encouraged avoidance all together. -Patient advised and agrees to abstain. DVT prophylaxis: SCDs. Ambulation. Will discharge home. Follow-up PCP. RX as written. Activity as tolerated. Diet as tolerated.
--- NOTE | 2018-01-06 10:55 | ECHRPT ---
Indication: Syncope CONCLUSIONS Normal left ventricular size. Wall thickness is normal. The left ventricular systolic function is normal with an estimated ejection fraction in the range of 60-65%. No regional wall motion abnormalities are present. Trace mitral valve regurgitation. BP: / HR: Rhythm: MEASUREMENTS (Male / Female) Normal Values Technical Quality:Good 2D ECHO LV Diastolic Diameter PLAX 4.2 cm 4.2 - 5.9 / 3.9 - 5.3 cm LV Systolic Diameter PLAX 2.3 cm IVS Diastolic Thickness 0.9 cm 0.6 - 1.0 / 0.6 - 0.9 cm LVPW Diastolic Thickness 0.9 cm 0.6 - 1.0 / 0.6 - 0.9 cm LV Relative Wall Thickness 0.4 RV Internal Dim ED PLAX 1.9 cm LVOT Diameter 1.8 cm Aortic Root Diameter 2.7 cm LA Systolic Diameter LX 2.5 cm 3.0 - 4.0 / 2.7 - 3.8 cm M-MODE AV Cusp Separation MM 1.9 cm DOPPLER AV Peak Velocity 131.5 cm/s AV Peak Gradient 6.9 mmHg LVOT Peak Velocity 120.0 cm/s LVOT Peak Gradient 5.8 mmHg AV Area Cont Eq pk 2.3 cm Mitral E Point Velocity 99.7 cm/s Mitral A Point Velocity 106.0 cm/s Mitral E to A Ratio 0.9 LV E' Lateral Velocity 11.5 cm/s Mitral E to LV E' Lateral Ratio 8.7 LV E' Septal Velocity 8.3 cm/s Mitral E to LV E' Septal Ratio 12.0 TR Peak Velocity 273.0 cm/s TR Peak Gradient 29.8 mmHg Right Atrial Pressure 10.0 mmHg Pulmonary Artery Systolic Pressu 39.8 mmHg Right Ventricular Systolic Press 39.8 mmHg FINDINGS LEFT VENTRICLE Normal left ventricular size. Wall thickness is normal. The left ventricular systolic function is normal with an estimated ejection fraction in the range of 60-65%. No regional wall motion abnormalities are present. RIGHT VENTRICLE Normal right ventricular size and systolic function. LEFT ATRIUM The left atrial size is normal. RIGHT ATRIUM The right atrial size is normal. ATRIAL SEPTUM Normal atrial septal thickness without atrial level shunting by limited color doppler interrogation. AORTA The aortic root and proximal ascending aorta are normal in size on limited imaging. MITRAL VALVE Trace mitral valve regurgitation. AORTIC VALVE Trileaflet aortic valve. No aortic valve stenosis or regurgitation. TRICUSPID VALVE Structurally normal tricuspid valve. No tricuspid valve stenosis or regurgitation. PULMONARY VALVE No pulmonary valve regurgitation or stenosis. VESSELS The inferior vena cava is normal in size. PERICARDIUM No pericardial effusion. Aaron Bernard MD (Electronically Signed) Final Date:06 January 2018 10:55
[2018-01-06] MEDS ORDERED: LORazepam 1 MG Tablet PO ONE (11:30)
[2018-01-06 11:56] VITALS: BP 122/72; PULSE 76; RESP 18; TEMP 98; O2SAT 97
--- NOTE | 2018-01-06 12:20 | ECG ---
Date Performed: 01/05/2018 Time Performed: 18:38:11 PTAGE: 52 years EKG: Sinus rhythm POSSIBLE LEFT ATRIAL ENLARGEMENT BORDERLINE ECG INTERPRETATION BASED ON A DEFAULT AGE OF 40 YEARS PREVIOUS TRACING 11/07/17 18.21 Since the previous tracing, no significant change noted DOCTOR: Teddy Julio Interpretating Date/Time 01/06/2018 12:18:36
[2018-01-06] MEDS ORDERED: Topiramate 25 MG Tablet PO ONE (13:00)
== END 2018-01-06 13:29 | disposition home or self-care (01) ==
LOC: PHED 18:23 → PHEDA 18:23 → PH3 01-06 00:40
PROVIDERS: ADMIT Internal Medicine; ATTEND Internal Medicine